=== PATIENT | male | born 1990 | race Caucasian/White ===

== ENCOUNTER 2021-04-09 22:54 | Emergency (ER) | payer BC ==
[2021-04-09 23:09] LABS: HEMOGLOBIN 12.2 gm/dl (14.0-17.5); RED BLOOD COUNT 4.23 M/UL (4.20-5.50); WHITE BLOOD COUNT 13.2 K/UL (4.5-11.0)
[2021-04-09 23:38] LABS: BUN/CREATININE RATIO 14 (0-10)
== END 2021-04-10 00:28 | disposition short-term general hospital (02) ==
LOC: ER1 22:54 → EDBD 22:54 → ER1 04-10 00:28
PROVIDERS: Family Medicine
DX: S27.2XXA Traumatic hemopneumothorax, initial encounter (principal); S27.331A Laceration of lung, unilateral, initial encounter; Z20.822 Contact with and (suspected) exposure to COVID-19; F17.210 Nicotine dependence, cigarettes, uncomplicated; S93.601A Unspecified sprain of right foot, initial encounter; Y35.091A Legal intervention involving other firearm discharge, law enforcement official injured, initial encounter
CPT/HCPCS: 36430; 71045; 71260; 73620; 80053; 80307; 81001; 83605; 85025; 85610; 85730; 86850; 86900; 86901; 86920; 93005; 94760; 99284; G0480; P9016; Q9967; U0002